=== PATIENT | male | born 1955 | race Caucasian/White ===

== ENCOUNTER 2019-06-27 09:08 | Emergency (ER) | payer OTHER ==
[~2019-06-27] VITALS: Ht 172.7 cm; Wt 81.7 kg
[2019-06-27] MEDS ORDERED: VOLTAREN GEL 1100 G1 TOP (09:15)
[2019-06-27] MEDS ORDERED: NORVASC 2.5 MG2.5 M1 PO (09:15)
[2019-06-27] MEDS ORDERED: AMLODIPINE-BEN1 EAC3 PO (09:25)
[2019-06-27 09:36] LABS: HEMATOCRIT 42.3 % (42.0-52.0); HEMOGLOBIN 14.3 gm/dL (14.0-18.0); MCH 33.1 pg (26.0-34.0); MCHC 33.7 g/dL (28.0-37.0); MCV 98.2 fL (80.0-100.0); PLATELET COUNT 250 thou/uL (150-400); RBC 4.31 mil/uL (4.50-6.00); RDW 13.2 % (10.5-14.5); WBC 4.1 thou/uL (4.0-11.0)
[2019-06-27 09:44] LABS: ANION GAP 4 mmol/L (7-16); BUN 15 mg/dL (7-18); CALCIUM 9.7 mg/dL (8.5-10.1); CHLORIDE 102 mmol/L (98-107); CO2 31 mmol/L (21-32); CREATININE 0.8 mg/dL (0.7-1.3); GLUCOSE 93 mg/dL (74-106); POTASSIUM 3.8 mmol/L (3.5-5.1); SODIUM 137 mmol/L (136-145)
[2019-06-27 09:53] LABS: ALBUMIN 3.8 g/dL (3.4-5.0); SGOT 38 U/L (15-37); SGPT 35 U/L (30-65); TOTAL BILIRUBIN 0.4 mg/dL (<0.1-1.0); TOTAL PROTEIN 7.9 g/dL (6.4-8.2); TROPONIN-I <0.06 ng/mL (<0.06)
[2019-06-27 09:55] LABS: ABSOLUTE NEUTROPHILS 1.9 thou/uL (1.4-8.2)
[2019-06-27] MEDS ORDERED: PROAIR HFA8.5 GM INH (11:25)
[2019-06-27] MEDS ORDERED: PREDNISONE50 MG PO (11:25)
[2019-06-27 11:42] VITALS: BP 144/82
== END 2019-06-27 11:43 | disposition home or self-care (01) ==
LOC: ER 09:08
PROVIDERS: Emergency Medicine
DX: J06.9 Acute upper respiratory infection, unspecified (principal); I10 Essential (primary) hypertension; Z98.890 Other specified postprocedural states